=== PATIENT | male | born 1935 | race Caucasian/White ===

== ENCOUNTER 2018-10-17 05:35 | Observation (INO) | payer OTHER, MEDICARE ==
[~2018-10-17] VITALS: Ht 167.6 cm; Wt 68.0 kg
[~2018-10-17 05:35] MED LIST: ASPIRIN325 PO; ATORVASTATIN CA40 MG PO; AZOPT OPHTH1 %/10 M1 OPHTHALMIC; BRIMONIDINE 0.110 ML OPHTHALMIC; COZAAR100 MG PO; FISH OIL 500 M1 EAC2 PO; METOPROLOL SUCC50 MG PO; PULMICORT FLEX90 MCG INH; TUMS PO; VITAMIN D31000 UNI2 PO
[2018-10-17 09:29] VITALS: BP 130/47
[2018-10-17 16:00] VITALS: BP 152/49
[2018-10-17 16:30] VITALS: BP 138/49
--- NOTE | 2018-10-17 18:53 | NUR ---
VSS-AFEBRILE. RECIEVED FROM PACU-ALERT AND ORIENTED X 4. LUNGS DIMINSHED IN BILATERAL LOWER LOBES, PLACED ON 2LNC, DOES NOT WEAR O2 AT HOME. ABDOMEN SLIGHTLY DISTENDED AND TENDER, 2 LAP SITES OPEN TO AIR WITH SLIGHT BRUISING. HYPOACTIVE BOWEL SOUNDS. PAIN WELL CONTROLLED WITH PRESCRIBED IV MEDICATIONS, NO NAUSEA REPORTED. HAS YET TO VOID POST OPERATIVELY. TOLERATED A FULL LIQUID DINNER, REGULAR MEAL ORDERED FOR BREAKFAST POD 1. ASSISTED TO TURN FOR COMFORT. VERBALIZED UNDERSTANDING OF ALL ADMISSION INFORMATION INCLUDING CALLING FOR ASSISTANCE WHEN NEEDING TO GET OUT OF BED AND WHEN NEEDING TO USE RESTROOM.
[2018-10-17 19:20] VITALS: BP 119/31
--- NOTE | 2018-10-18 03:59 | NUR ---
ASSESSMENT: PT REMAINS ALERT AND ORIENT TIMES FOUR. UP AD SEAN IN ROOM. UO DARK [place]. MINIMAL AMTS OF URINE PER URINAL. VSS, AFEBRILE. SLOW PROGRESS TOWARDS DC GOALS, WILL CONTINUE TO MONITOR.
[2018-10-18 04:37] VITALS: BP 128/35
[2018-10-18 07:45] VITALS: BP 116/81
[2018-10-18] MEDS ORDERED: MIRALAX17 GM PO (08:11)
[2018-10-18] MEDS ORDERED: ONDANSETRON HCL4 M2 PO (08:11)
[2018-10-18] MEDS ORDERED: NORCO 5-325 TA1 EACH PO (08:11)
[2018-10-18 08:35] VITALS: BP 128/35
--- NOTE | 2018-10-18 09:22 | NUR ---
PT DISCHARGED AT THIS TIME. DISCHARGE PAPERS GONE OVER SIGNED AND COPY IN CHART. IV ACSESS DCD. RX'X GIVEN TO PATIENT. ALL BELONGINGS PACKED AND SENT WITH PATIENT. SPOUSE HERE TO DRIVE PATIENT HOME. PT W/O PAIN OR RESP DISTRESS AT DISCHARGE.
[2018-10-18 09:26] VITALS: BP 128/35
== END 2018-10-18 09:28 | disposition home or self-care (01) ==
LOC: TBA 05:35 → OR 05:35 → 4E 16:28 → OR 16:29 → ENTRNSPT 10-18 09:10 → EDTRNSPTSTS 10-18 09:17 → 4E 10-18 09:28
PROVIDERS: ADMIT Surgery
DX: K40.21 Bilateral inguinal hernia, without obstruction or gangrene, recurrent (principal); I10 Essential (primary) hypertension; I25.10 Atherosclerotic heart disease of native coronary artery without angina pectoris; J44.9 Chronic obstructive pulmonary disease, unspecified; Z98.890 Other specified postprocedural states
CPT/HCPCS: 10783; 50010; 50101; 50249; 50411; 50555; 51297; 51824; 52265; 52266; 53307; 54022; 54118; 54169; 55245; 56462; 56525; 56526; 62110; 62900; 70005

== ENCOUNTER → 2019-12-09 | Outpatient (CLI) | payer OTHER, MEDICARE ==
[~2019-12-09] MED LIST changes: +MIRALAX17 GM PO; +NORCO 5-325 TA1 EACH PO; +ONDANSETRON HCL4 M2 PO
== END ==
LOC: SJCVCIMAG 08:55
PROVIDERS: ATTEND Internal Medicine
DX: I65.23 Occlusion and stenosis of bilateral carotid arteries (principal); I25.810 Atherosclerosis of coronary artery bypass graft(s) without angina pectoris; I10 Essential (primary) hypertension; E78.5 Hyperlipidemia, unspecified; E78.49 Other hyperlipidemia; J45.909 Unspecified asthma, uncomplicated; Z95.1 Presence of aortocoronary bypass graft; Z79.82 Long term (current) use of aspirin; Z79.899 Other long term (current) drug therapy; Z82.49 Family history of ischemic heart disease and other diseases of the circulatory system; Z87.891 Personal history of nicotine dependence

== ENCOUNTER → 2020-06-10 | Outpatient (CLI) | payer OTHER, MEDICARE | LOC: SJCVCIMAG 08:17 | PROVIDERS: ATTEND Internal Medicine | DX: I65.23 Occlusion and stenosis of bilateral carotid arteries (principal); I08.3 Combined rheumatic disorders of mitral, aortic and tricuspid valves; I49.3 Ventricular premature depolarization; I25.10 Atherosclerotic heart disease of native coronary artery without angina pectoris; I11.9 Hypertensive heart disease without heart failure; E78.5 Hyperlipidemia, unspecified; E78.00 Pure hypercholesterolemia, unspecified; J45.909 Unspecified asthma, uncomplicated; I73.9 Peripheral vascular disease, unspecified; Z95.1 Presence of aortocoronary bypass graft; Z79.82 Long term (current) use of aspirin; Z79.899 Other long term (current) drug therapy; Z87.891 Personal history of nicotine dependence ==

== ENCOUNTER → 2020-12-17 | Outpatient (CLI) | payer OTHER, MEDICARE | LOC: SJCVC 13:55 | PROVIDERS: ATTEND Internal Medicine | DX: R94.31 Abnormal electrocardiogram [ECG] [EKG] (principal); I49.9 Cardiac arrhythmia, unspecified; I25.10 Atherosclerotic heart disease of native coronary artery without angina pectoris; I35.0 Nonrheumatic aortic (valve) stenosis; E78.5 Hyperlipidemia, unspecified; I10 Essential (primary) hypertension; I73.9 Peripheral vascular disease, unspecified; I65.23 Occlusion and stenosis of bilateral carotid arteries; J45.909 Unspecified asthma, uncomplicated; E78.00 Pure hypercholesterolemia, unspecified; Z95.1 Presence of aortocoronary bypass graft; Z79.82 Long term (current) use of aspirin; Z79.899 Other long term (current) drug therapy; Z87.891 Personal history of nicotine dependence; Z82.49 Family history of ischemic heart disease and other diseases of the circulatory system ==

== ENCOUNTER → 2021-02-11 | Outpatient (CLI) | payer OTHER, MEDICARE | LOC: RAD 09:20 | PROVIDERS: ATTEND Pediatrics | DX: J84.10 Pulmonary fibrosis, unspecified (principal) ==

== ENCOUNTER → 2021-06-09 | Outpatient (CLI) | payer OTHER, MEDICARE | LOC: SJCVCIMAG 08:55 | PROVIDERS: ATTEND Internal Medicine | DX: I08.3 Combined rheumatic disorders of mitral, aortic and tricuspid valves (principal); I65.23 Occlusion and stenosis of bilateral carotid arteries; I25.10 Atherosclerotic heart disease of native coronary artery without angina pectoris; E78.5 Hyperlipidemia, unspecified; I10 Essential (primary) hypertension; E78.00 Pure hypercholesterolemia, unspecified; J45.909 Unspecified asthma, uncomplicated; Z95.1 Presence of aortocoronary bypass graft; Z82.49 Family history of ischemic heart disease and other diseases of the circulatory system; Z72.89 Other problems related to lifestyle; Z79.82 Long term (current) use of aspirin; Z79.899 Other long term (current) drug therapy; Z87.891 Personal history of nicotine dependence ==

== ENCOUNTER 2021-06-25 07:43 | Emergency (ER) | payer OTHER, MEDICARE ==
[~2021-06-25] VITALS: Ht 165.1 cm; Wt 63.5 kg
[2021-06-25 07:46] VITALS: BP 155/54
[2021-06-25] MEDS ORDERED: DOXYCYCLINE 10100 MG PO (08:02)
== END 2021-06-25 08:05 | disposition home or self-care (01) ==
LOC: ER 07:43
DX: L03.032 Cellulitis of left toe (principal); I10 Essential (primary) hypertension; J45.909 Unspecified asthma, uncomplicated; Z90.89 Acquired absence of other organs; Z95.1 Presence of aortocoronary bypass graft; Z98.890 Other specified postprocedural states; Z85.828 Personal history of other malignant neoplasm of skin; Z79.82 Long term (current) use of aspirin; Z79.891 Long term (current) use of opiate analgesic; Z79.899 Other long term (current) drug therapy